=== PATIENT | male | born 1995 | race American Indian/Alaskan Native ===

== ENCOUNTER 2016-10-30 09:59 | Emergency (ER) | payer OTHER ==
[2016-10-30 10:07] VITALS: BP 113/63
[2016-10-30] MEDS ORDERED: BOOSTRIX IM ONE (12:26)
[2016-10-30] MEDS ORDERED: MOTRIN PO ONE (12:26)
--- NOTE | 2016-10-30 13:13 | Emergency Department Report ---
ED Lower Extremity HPI - General Chief Complaint: Extremity Injury, Lower Stated Complaint: SKIN REMOVED FROM LT FOOT Time Seen by Provider: 10/30/16 12:03 Source: patient Mode of arrival: Ambulatory Limitations: No Limitations - History of Present Illness Initial Comments: This is a 20-year-old male well-nourished with nontoxic or ill in appearance that c/o a skin tear of left great toe. Patient stated was playing in [employer] and then noticed burning sensation that night. Patient states he is homeless. Patient denies any drug or alcohol consumption. 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 He denies any fever, chest pain, shortness of breath, numbness or tingling sensation. Patient denies any deformity or pain to the site. Patient denies any trauma to the site. Patient denies any allergies. Patient stated does not remember his last tetanus shot. MD Complaint: other (skin avulsion to the left great toe) -: Sudden, days(s) Injury: Toes: Left (great toe) Type of Injury: unknown Place: other ([facility]) Improves With: NSAID Worsens With: nothing Context: running, jumping Associated Symptoms: denies: snap/pop sensation, swelling, numbness, tingling, unable to bear weight, able to partially bear weight, ambulatory - Related Data Previous Rx's Medication Instructions Recorded Last Taken Type Cephalexin [Keflex] 500 mg PO BID 7 Days 10/30/16 Unknown Rx Ibuprofen [Motrin 600 MG tab] 600 mg PO Q8H PRN 5 Days 10/30/16 Unknown Rx ED Review of Systems ROS: Stated complaint: SKIN REMOVED FROM LT FOOT Other details as noted in HPI Constitutional: denies: chills, fever Eyes: denies: eye pain, eye discharge, vision change ENT: denies: ear pain, throat pain Respiratory: denies: cough, shortness of breath, wheezing Cardiovascular: denies: chest pain, palpitations Endocrine: no symptoms reported Gastrointestinal: denies: abdominal pain, nausea, diarrhea Genitourinary: denies: urgency, dysuria Musculoskeletal: denies: back pain, joint swelling, arthralgia Skin: other (skin abrasion left great toe). denies: rash, lesions Neurological: denies: headache, weakness, paresthesias Psychiatric: denies: anxiety, depression Hematological/Lymphatic: denies: easy bleeding, easy bruising ED Past Medical Hx - Past Medical History Previous Medical History?: No - Surgical History Past Surgical History?: No - Social History Smoking Status: Current Every Day Smoker Substance Use Type: Alcohol - Medications Home Medications: Home Medications Medication Instructions Recorded Confirmed Last Taken Type Cephalexin [Keflex] 500 mg PO BID 7 Days 10/30/16 Unknown Rx Ibuprofen [Motrin 600 MG tab] 600 mg PO Q8H PRN 5 Days 10/30/16 Unknown Rx ED Physical Exam - General Limitations: No Limitations General appearance: alert, in no apparent distress - Head Head exam: Present: atraumatic, normocephalic - Eye Eye exam: Present: normal appearance, PERRL, EOMI Pupils: Present: normal accommodation - ENT ENT exam: Present: normal exam, normal orophraynx, mucous membranes moist, TM's normal bilaterally - Neck Neck exam: Present: normal inspection, full ROM. Absent: tenderness, meningismus, lymphadenopathy, thyromegaly - Respiratory Respiratory exam: Present: normal lung sounds bilaterally. Absent: respiratory distress, wheezes, rales, rhonchi, stridor - Cardiovascular Cardiovascular Exam: Present: regular rate, normal rhythm. Absent: systolic murmur, diastolic murmur, rubs, gallop - GI/Abdominal GI/Abdominal exam: Present: soft, normal bowel sounds. Absent: distended, tenderness, guarding, rebound, rigid - Rectal Rectal exam: Present: deferred - Extremities Exam Extremities exam: Present: normal inspection, full ROM, normal capillary refill. Absent: tenderness, pedal edema, joint swelling, calf tenderness - Expanded Lower Extremity Exam Left Hip exam: Present: normal inspection, full ROM. Absent: tenderness, swelling Upper Leg exam: Present: normal inspection, full ROM. Absent: tenderness, swelling Knee exam: Present: normal inspection, full ROM. Absent: tenderness, swelling Lower Leg exam: Present: normal inspection, full ROM. Absent: tenderness, swelling Ankle exam: Present: normal inspection, full ROM. Absent: tenderness, swelling Foot/Toe exam: Present: normal inspection, full ROM, abrasion (left great toe). Absent: tenderness, swelling, laceration, ecchymosis, deformity, crepidus, dislocation, erythema, amputation, puncture wound, foreign body, calcaneal tenderness, tenderness at base of 5th metatarsal, nail avulsion, subungual hematoma Neuro vascular tendon exam: Present: no vascular compromise Gait: Positive: observed and normal 1 - 2 cm skin abrasion - Back Exam Back exam: Present: normal inspection - Neurological Exam Neurological exam: Present: alert, oriented X3 - Psychiatric Psychiatric exam: Present: normal affect, normal mood - Skin Skin exam: Present: warm, dry, intact, normal color. Absent: rash ED Course Vital Signs 10/30/16 10/30/16 10:05 12:55 Temperature 98.2 F Pulse Rate 76 Respiratory 16 16 Rate Blood Pressure 113/63 O2 Sat by Pulse 96 Oximetry ED Lower Extremity MDM - Medical Decision Making Ed course: This is a 20-year-old male that presents with left great toe 2cm skin abrasion 1- after my physical exam, patient received tetanus booster and ibuprofen 600 mg. 2- Due to the patient being homeless, keflex is prescribed at the time of d/c. 3- Patient was instructed to observe signs of infection such as pus, drainage, numbness, swelling, or tenderness and to report back to the ED. 4- Patient was also instrcuted to f/u with a PCP as provided to him. 5 at time time of discharge, the patient does not seem toxic or ill in appearance. No acute signs of distress noted. Patient agrees to discharge treatment plan of care. No further questions noted by the patient. Critical care attestation.: If time is entered above; I have spent that time in minutes in the direct care of this critically ill patient, excluding procedure time. ED Disposition Clinical Impression: Abrasion of skin Disposition: DISCHARGED TO HOME OR SELFCARE Is pt being admited?: No Does the pt Need Aspirin: No Condition: Stable Instructions: Abrasion (ED), Ibuprofen (By mouth), Cephalexin (By mouth) Additional Instructions: observe signs of infection such as pus, drainage, numbness, swelling, or tenderness and to report back to the ED. Follow-up with a primary care doctor in 3-5 days. Take full course and bodies as prescribed. Prescriptions: Cephalexin [Keflex] 500 mg PO BID 7 Days Ibuprofen [Motrin 600 MG tab] 600 mg PO Q8H PRN 5 Days PRN Reason: Pain Referrals: PRIMARY CAREMD [Primary Care Provider] - 3-5 Days [facility] [Outside] - 3-5 Days [facility] [Outside] - 3-5 Days [facility] [Outside] - 3-5 Days JAI WARNER MD [Referring] - 3-5 Days
== END 2016-10-30 13:43 | disposition home or self-care (01) ==
LOC: ED 09:59
DX: S90.412A Abrasion, left great toe, initial encounter (principal); F17.200 Nicotine dependence, unspecified, uncomplicated; X58.XXXA Exposure to other specified factors, initial encounter; Y93.89 Activity, other specified; Y99.8 Other external cause status; Y92.89 Other specified places as the place of occurrence of the external cause
CPT/HCPCS: 90471; 90715; 99282

== ENCOUNTER 2019-09-07 04:45 | Emergency (ER) | payer OTHER ==
[2019-09-07] MEDS ORDERED: BALANCED SALT IRRIG (BSS) OPHTH SOLN 15 ML OU ONE (07:36)
[2019-09-07] MEDS ORDERED: TETRACAINE 0.5% OPHTH SOLN 4ML OU ONE (07:36)
[2019-09-07] MEDS ORDERED: IBUPROFEN 600 MG TAB PO ONE (07:36)
[2019-09-07] MEDS ORDERED: FLUORESCEIN 1 MG STRIP OP ONE (07:36)
--- NOTE | 2019-09-07 08:37 | Emergency Department Report ---
Eye Injury/Foreign Body - HPI Duration: Last night Tetanus Status: Up to Date Eye Symptoms: Eye Pain: Yes, Blurred Vision: No, Eye Redness: Yes, Grinding/Hammering Metal: Yes, Used Eye Protection: No, Contact Lens Use: No, Recalls Injury: Yes, Photophobia: Yes Other History: 23-year-old -[place] male presents to the emergency room for right eye injury. Patient states that he and his brother were play fighting when his brother hit him in the right eye while he had glasses on. Patient states that the glasses broke. He reports that it feels like he may have gotten an eyelash in his eye. Patient is up-to-date on his vaccines. ED Review of Systems ROS: Stated complaint: GASH ON (R) EYE Other details as noted in HPI Comment: All other systems reviewed and negative ED Past Medical Hx - Past Medical History Previous Medical History?: No - Surgical History Past Surgical History?: No - Social History Smoking Status: Current Every Day Smoker Substance Use Type: Alcohol - Medications Home Medications: Home Medications Medication Instructions Recorded Confirmed Last Taken Type Cephalexin [Keflex] 500 mg PO BID 7 Days capsule 10/30/16 Unknown Rx Ibuprofen [Motrin 600 MG tab] 600 mg PO Q8H PRN 5 Days #15 tablet 09/07/19 Unknown Rx Ofloxacin 0.3% [Ocuflox 0.3% opth] 2 drops OP BID 10 Days #1 bottle 09/07/19 Unknown Rx Eye Injury Exam - Exam General: Vital signs noted. No distress. Alert and acting appropriately. - Visual Acuity Right Eye Exam: Right Fluorescein Uptake (slit lamp) (Fluorescein uptake on cornea about 6:00 from the pupil), Right Photophobia, Both EOMI, Neither Eye Foreign Body, Neither Lid Foreign Body (Skin avulsion of the right upper eyelid) ED Medical Decision Making - Medical Decision Making 23-year-old -[place] male presents to the emergency room for right eye injury. Patient states that he and his brother were play fighting when his brother hit him in the right eye while he had glasses on. Patient states that the glasses broke. He reports that it feels like he may have gotten an eyelash in his eye. Patient is up-to-date on his vaccines. Liang lamp exam shows patient has fluorescein uptake on the right cornea approximately 6:00 from the pupil. Patient has an avulsion laceration of the eyelid. Patient was given ibuprofen for pain. Patient will be diagnosed with for corneal abrasion and a laceration. Patient will be placed on moxifloxacin ibuprofen referral to the administrative associate. Sterile bandage placed over right eye discussed with patient he needs to wear sun shades. Critical care attestation.: If time is entered above; I have spent that time in minutes in the direct care of this critically ill patient, excluding procedure time. ED Disposition Clinical Impression: Corneal abrasion, right Qualifiers: Encounter type: initial encounter Qualified Code(s): S05.01XA - Injury of conjunctiva and corneal abrasion without foreign body, right eye, initial encounter Laceration of eyelid Qualifiers: Encounter type: initial encounter Laterality: right Qualified Code(s): S01.111A - Laceration without foreign body of right eyelid and periocular area, initial encounter Disposition: TO HOME OR SELFCARE Is pt being admited?: No Condition: Stable Instructions: Corneal Abrasion (ED), Abrasion (ED) Additional Instructions: Use antibiotic eyedrops/ointment as prescribed. It is very important for you to follow-up with an administrative associate. Please keep your wound clean and dry you can place triple antibiotic over your eye lid abrasion. Please take ibuprofen or Tylenol as needed for pain management. It is important that you wear sun shades to protect your right eye. Prescriptions: Ibuprofen [Motrin 600 MG tab] 600 mg PO Q8H PRN 5 Days #15 tablet PRN Reason: Pain Ofloxacin 0.3% [Ocuflox 0.3% opth] 2 drops OP BID 10 Days #1 bottle Referrals: PRIMARY MD MIRELLA [Primary Care Provider] - 3-5 Days CHAVA GASPAR MD [Staff Physician] - 3-5 Days [facility] [Provider Group] - 3-5 Days [facility] [Provider Group] - 3-5 Days Forms: Work/School Release Form(ED)
[2019-09-07 08:47] VITALS: BP 126/78
== END 2019-09-07 09:18 | disposition home or self-care (01) ==
LOC: ED 04:45
DX: S05.01XA Injury of conjunctiva and corneal abrasion without foreign body, right eye, initial encounter (principal); S01.111A Laceration without foreign body of right eyelid and periocular area, initial encounter; F17.200 Nicotine dependence, unspecified, uncomplicated; Z79.899 Other long term (current) drug therapy; X58.XXXA Exposure to other specified factors, initial encounter; Y93.89 Activity, other specified; Y92.89 Other specified places as the place of occurrence of the external cause; Y99.8 Other external cause status